=== PATIENT | female | born 1985 | race Caucasian/White ===

== ENCOUNTER 2016-06-30 10:27 | Day surgery (SDC) | payer BC ==
[~2016-06-30] VITALS: Ht 152.4 cm; Wt 72.8 kg
[2016-06-30 11:55] VITALS: Ht 152.4 cm; Wt 72.8 kg
[2016-06-30 12:48] VITALS: BP 98/62; PULSE 72; RESP 20
[2016-06-30] MEDS ORDERED: MIDAZOLAM 1 MG/ML 2 ML INJ ONE ×2 (13:07→13:08)
[2016-06-30] MEDS ORDERED: FENTAnyl 50 MCG/ML VIAL ONE (13:07)
--- NOTE | 2016-06-30 13:23 | GILP ---
DATE OF PROCEDURE: NAME OF PROCEDURE: Colonoscopy and biopsy. SURGEON: Dane Ferguson MD PREOPERATIVE DIAGNOSES: Rectal bleeding. POSTOPERATIVE DIAGNOSES: 1. Colonoscopy all the way to the cecum. 2. Internal hemorrhoids. 3. Random biopsies were taken to rule out microscopic colitis. INDICATION FOR THE PROCEDURE: Mr. Crystal Armas is a 30-year-old female patient who was complaining of rectal bleeding. The patient also said she has noticed mucus in the stool. The patient was schedu led for colonoscopic examination for further evaluation. The procedure and possible complications were well explained to the patient. She understood and con sented to the procedure. DESCRIPTION OF PROCEDURE: Under the influence of fentanyl and Versed the colonoscope was carefully introduced in the rectum and under direct vision it was advanced all the way to the cecum. FINDINGS: The patient had internal hemorrhoids. Random biopsies were taken to rule out microscopic colitis. The terminal ileum was normal. She tolerated the procedure very well and there was no complication from the procedure. At the end of the procedure she was awake with stable vital signs and she was discharged home to the care of he r family. IMPRESSION: 1. Colonoscopy all the way to the cecum and into the terminal ileum. 2. Normal terminal ileum. 3. Internal hemorrhoids. 4. Random biopsies were taken to rule out microscopic colitis. PLAN: 1. Anusol-HC 2.5% cream at bedtime p.r.n. 2. Await histopathology report. Dictated By: DANE DOYLE/SONJA Conf#: [id number] DID#: [id number]
[2016-06-30 13:47] VITALS: BP 103/61; PULSE 66; RESP 16
== END 2016-06-30 15:50 | disposition home or self-care (01) ==
LOC: GIL 10:27
PROVIDERS: ATTEND Internal Medicine Gastroenterology
DX: K64.8 Other hemorrhoids (principal)
CPT/HCPCS: 88305; J2250; J3010